=== PATIENT | female | born 1985 | race Caucasian/White ===

== ENCOUNTER 2017-09-10 16:47 | Emergency (ER) | payer MEDICAID, OTHER ==
[2017-09-10 17:48] VITALS: BP 152/102; PULSE 86; RESP 12; TEMP 97.7; O2SAT 100
--- NOTE | 2017-09-10 18:53 | C.PDOC ---
History Of Present Illness 32 y/o female c/o right ear fullness, pain, tinnitus, and decreased hearing x 1 day with some sinus congestion. no fevers. Time Seen by Provider: 09/10/17 18:18 Chief Complaint (Nursing): ENT Problem History Per: Patient History/Exam Limitations: no limitations Onset/Duration Of Symptoms: Days Current Symptoms Are (Timing): Still Present Severity: Moderate Past Medical History Reviewed: Historical Data, Nursing Documentation, Vital Signs Vital Signs: Last Vital Signs Temp 97.7 F 09/10/17 17:40 Pulse 86 09/10/17 17:40 Resp 12 09/10/17 17:40 BP 152/102 H 09/10/17 17:40 Pulse Ox 100 09/10/17 19:05 Family History: States: Unknown Family Hx - Social History Hx Alcohol Use: No Hx Substance Use: No - Immunization History Hx Tetanus Toxoid Vaccination: No Hx Influenza Vaccination: No Hx Pneumococcal Vaccination: No Review Of Systems Constitutional: Negative for: Fever, Chills ENT: Positive for: Ear Pain, Other (tinnitus). Negative for: Ear Discharge, Throat Pain Cardiovascular: Negative for: Chest Pain Respiratory: Negative for: Cough, Shortness of Breath Gastrointestinal: Negative for: Vomiting, Abdominal Pain Skin: Negative for: Rash Neurological: Negative for: Weakness, Numbness, Headache Physical Exam - Physical Exam Appears: Non-toxic, No Acute Distress Skin: Warm, Dry Head: Atraumatic, Normacephalic Eye(s): bilateral: Normal Inspection Ear(s): Bilateral: Normal Nose: No Discharge Lips: Normal Appearing Throat: No Erythema, No Exudate Neck: Normal ROM, Supple ED Course And Treatment O2 Sat by Pulse Oximetry: 100 Medical Decision Making Medical Decision Making: pt with dm, no hx htn, with ear pain/pressure/ringing. pt found to have elevated bp in ed, denies any cp, sob, dizziness, headache. pt advised to f/u with pmd tomorrow for bp check. Disposition Counseled Patient/Family Regarding: Diagnosis, Need For Followup - Disposition Referrals: Manuelito Quan MD [Medical Doctor] - Disposition: HOME/ ROUTINE Disposition Time: 18:55 Condition: STABLE Additional Instructions: Please follow up with Dr Quan tomorrow for re-evaluation of your blood pressure and for referral to ENT. Take Sudafed (over the counter) decongestant. Instructions: Tinnitus (ED) Forms: [facility] [facility] ([place]z), Emergency Room Disch/Depart - Clinical Impression Clinical Impression: Tinnitus, right ear, Elevated blood pressure reading
== END 2017-09-10 19:36 | disposition home or self-care (01) ==
LOC: C.ER 16:47
DX: H93.11 Tinnitus, right ear (principal); R03.0 Elevated blood-pressure reading, without diagnosis of hypertension